=== PATIENT | female | born 1935 | race Caucasian/White ===

== ENCOUNTER → 2019-01-10 | Outpatient (CLI) | payer MEDICARE, BC ==
--- NOTE | 2019-01-10 15:47 | PCVCIMAG ---
APPROVED REPORT Study performed: 01/10/2019 15:01:54 EXAM: Comprehensive 2D, Doppler, and color-flow Echocardiogram Patient Location: Echo lab Status: routine BSA: 1.45 HR: 90 bpmBP: 112/66 mmHg Rhythm: NSR Other Information Study Quality: Technically Difficult Indications Atrial Fibrillation Hypertension/HDD Edema, Hypertension, Emphysema 2D Dimensions IVSd: 8.86 (7-11mm)LVOT Diam: 20.14 (18-24mm) LVDd: 24.88 mm PWd: 9.22 (7-11mm)Ascending Ao: 25.78 (22-36mm) LVDs: 16.91 (25-40mm) Left Atrium: 33.36 (27-40mm) Aortic Root: 37.22 mm LV Single Plane 4CH: 61.43 % LV Single Plane 2CH: 59.98 % Biplane EF: 60.2 % Volumes Left Atrial Volume (Systole) Single Plane 4CH: 23.92 mLSingle Plane 2CH: 30.68 mL LA ESV Index: 20.00 mL/m2 Aortic Valve AoV Peak Mynor.: 1.69 m/s AO Peak Gr.: 11.42 mmHgLVOT Max P.15 mmHg LVOT Max V: 1.05 m/s SANDY Vmax: 1.98 cm2 Mitral Valve E/A Ratio: 0.7 MV Decel. Time: 310.13 ms MV E Max Mynor.: 0.64 m/s MV A Mynor.: 0.94 m/s IVRT: 114.19 ms TDI E/Lateral E': 5.82E/Medial E': 10.67 Medial E' Mynor.: 0.06 m/s Lateral E' Mynor.: 0.11 m/s Pulmonary Vein P Vein S: 0.73 m/sP Vein A: 0.44 m/s P Vein D: 0.39 m/sP Vein A Dur.: 96.9 msec P Vein S/D Ratio: 1.87 Tricuspid Valve TR Peak Mynor.: 3.29 m/s TR Peak Gr.: 43.37 mmHg Left Ventricle The left ventricle is normal size. There is normal LV segmental wall motion. There is normal left ventricular wall thickness. Left ventricular systolic function is normal. The left ventricular ejection fraction is within the normal range. LVEF is 55-60%. Grade I - abnormal relaxation pattern. Right Ventricle The right ventricle is normal size. The right ventricular systolic function is normal. Atria The left atrium size is normal. The right atrium size is normal. Aortic Valve The aortic valve is normal in structure. Trace aortic regurgitation. There is no aortic valvular stenosis. Mitral Valve The mitral valve is normal in structure. There is no mitral valve regurgitation noted. No evidence of mitral valve stenosis. Tricuspid Valve The tricuspid valve is normal in structure. Mild tricuspid regurgitation. Pulmonary artery pressure is 51mmHg. Pulmonic Valve The pulmonary valve is normal in structure. There is no pulmonic valvular regurgitation. Great Vessels The aortic root is normal in size. IVC is normal in size and collapses >50% with inspiration. Pericardium There is no pericardial effusion. <Conclusion> The left ventricle is normal size. LVEF is 55-60%. Grade I - abnormal relaxation pattern. The right ventricle is normal size. The left atrium size is normal. Trace aortic regurgitation. There is no mitral valve regurgitation noted. Mild tricuspid regurgitation. Pulmonary artery pressure is 51mmHg. The aortic root is normal in size. There is no pericardial effusion.
== END | disposition home or self-care (01) ==
LOC: PCVCIMAG 15:04
PROVIDERS: ATTEND Internal Medicine Cardiovascular Disease
DX: I07.1 Rheumatic tricuspid insufficiency (principal); I65.23 Occlusion and stenosis of bilateral carotid arteries; I48.91 Unspecified atrial fibrillation; I10 Essential (primary) hypertension; J43.9 Emphysema, unspecified; R06.00 Dyspnea, unspecified; R94.31 Abnormal electrocardiogram [ECG] [EKG]; R93.1 Abnormal findings on diagnostic imaging of heart and coronary circulation; E78.2 Mixed hyperlipidemia; R60.9 Edema, unspecified; M81.0 Age-related osteoporosis without current pathological fracture; Z79.899 Other long term (current) drug therapy
CPT/HCPCS: 36415; 80061; 93005; 93306; 93880; G0463

== ENCOUNTER → 2019-01-17 | Outpatient (CLI) | payer MEDICARE, BC ==
[~2019-01-17] MED LIST: REGADENOSON 0.4 MG/5 ML DISP.SYRIN. IV ONE
--- NOTE | 2019-01-17 12:52 | PCVCIMAG ---
APPROVED REPORT Imaging Protocol: Rest Tc-99m/Stress Tc-99m 1 day Study performed: 01/17/2019 08:55:52 Indication: Dyspnea, Afib, Elevated CA Score Patient Location: Out-Patient Stress Nurse: Gwen Hung RN, Tiffanie Tolbert RN PA Tech:Sanchez HongABHISHEK Ht: 5 ft 2 in Wt: 105 lbs BSA: 1.45 m2 HR: 88 bpm BP: 142/64 mmHg BMI: 19.20 Rhythm: Sinus Rhythm Medical History Medical History: Age, Hyperlipidemia, HTN, CVD, Afib Medications: Eliquis, Atorvastatin, Lanoxin, Metoprolol, Omeprazole, Oxygen Allergies: No known drug allergies Pretest Chest Pain Characteristics: No chest pain Exercise History: Sedentary Meds Held (24 hrs): Metoprolol Resting Data Rest SPECT myocardial perfusion imaging was performed in supine position 45 minutes following the intravenous injection of 10.6 mCi of Tc-99m Sestamibi. Time of rest injection: 814 Date: 01/17/2019 Administration Route: IV Administration Site: Right Arm Pharmacologic Stress Pharmacologic stress test was performed by injecting Regadenoson 0.4 mg IV push over 10-15 seconds immediately followed by the intravenous injection of 32.6 mCi of Tc-99m Sestamibi. Time of stress injection: 944 Date: 01/17/2019 Administration Route: IV Administration Site: Right Arm Gated Stress SPECT was performed 45 minutes after stress injection. The images were gated to evaluate regional wall motion and calculate left ventricular ejection fraction. Stress Test Details Stress Test: Pharmacologic stress testing performed using 0.4 mg of regadenoson per 5 mL given IV over 10 seconds. Reason for pharmacologic stress test: Compression Fracture in Back. HRMax Heart Rate (APMHR): 139 bpm Resting HR: 88 bpmTarget HR (85% APMHR): 118 bpm Max HR Achieved: 102 bpm % of APMHR: 73 Recovery HR: 93 bpm BP Resting BP: 142/64 mmHg Max BP: 117/56 mmHg Recovery BP: 130/58 mmHg ECG Resting ECG: Sinus Rhythm Stress ECG: Sinus Tachycardia Arrhythmia: PVC's Recovery ECG: Sinus Rhythm Clinical Reason for Termination: Completed protocol Stress Symptoms: Dyspnea, Nausea Exercise duration: min 55 sec Symptoms resolved with caffeine. Stress ECG Conclusion Clinical: Non-ischemic Study Quality Study: Good Study Data Post stress, the left ventricular ejection was 77%.. SSS: 12 SRS: 17 SDS: 1 TID = 1.03. Perfusion No evidence of stress induced ischemia or prior myocardial infarction. Wall Motion Normal left ventricular size and function with no regional wall motion abnormalities. Nuclear Conclusion No evidence of stress induced ischemia or prior myocardial infarction. Normal left ventricular size and function with no regional wall motion abnormalities. Post stress, the left ventricular ejection was 77%. No prior study available for comparison. <Conclusion> Clinical: Non-ischemic
== END | disposition home or self-care (01) ==
LOC: PCVCIMAG 08:25
PROVIDERS: ATTEND Internal Medicine Cardiovascular Disease
DX: I48.91 Unspecified atrial fibrillation (principal); R93.1 Abnormal findings on diagnostic imaging of heart and coronary circulation; R06.09 Other forms of dyspnea; I10 Essential (primary) hypertension; I65.23 Occlusion and stenosis of bilateral carotid arteries
CPT/HCPCS: 78452; 93017; A9500; J2785

== ENCOUNTER → 2019-02-28 | Outpatient (CLI) | payer MEDICARE, BC ==
--- NOTE | 2019-02-28 10:00 | PCVCIMAG ---
EXAM: VENOUS DUPLEX LEFT LOWER EXTREMITY INDICATION: Leg pain and swelling. FINDINGS: Left leg: No thrombus in the common femoral, main femoral, or popliteal veins. These veins are compressible with phasic flow. Calf veins are unremarkable where seen. IMPRESSION: No evidence of deep venous thrombosis in the left lower extremity as detailed above. LOC:[id number]
== END | disposition home or self-care (01) ==
LOC: PCVCIMAG 10:26
PROVIDERS: ATTEND Internal Medicine Cardiovascular Disease
DX: M79.89 Other specified soft tissue disorders (principal); M79.605 Pain in left leg
CPT/HCPCS: 93971; G0463

== ENCOUNTER → 2019-03-06 | Outpatient (CLI) | payer MEDICARE, BC | END | disposition home or self-care (01) | LOC: PCVCCLINIC 13:00 | PROVIDERS: ATTEND Internal Medicine Cardiovascular Disease | DX: I48.91 Unspecified atrial fibrillation (principal); I87.2 Venous insufficiency (chronic) (peripheral); I71.4 Abdominal aortic aneurysm, without rupture; I65.29 Occlusion and stenosis of unspecified carotid artery; M79.605 Pain in left leg; E78.5 Hyperlipidemia, unspecified; J44.9 Chronic obstructive pulmonary disease, unspecified; M81.0 Age-related osteoporosis without current pathological fracture | CPT/HCPCS: 93005; G0463 ==

== ENCOUNTER → 2019-07-26 | Outpatient (CLI) | payer MEDICARE, BC | END | disposition home or self-care (01) | LOC: PCVCCLINIC 16:28 | PROVIDERS: ATTEND Internal Medicine Cardiovascular Disease | DX: I48.91 Unspecified atrial fibrillation (principal); E78.2 Mixed hyperlipidemia; I10 Essential (primary) hypertension; D68.59 Other primary thrombophilia; I27.20 Pulmonary hypertension, unspecified; R93.1 Abnormal findings on diagnostic imaging of heart and coronary circulation; I71.4 Abdominal aortic aneurysm, without rupture; I65.23 Occlusion and stenosis of bilateral carotid arteries; E78.5 Hyperlipidemia, unspecified | CPT/HCPCS: 36415; 80061; 93005; G0463 ==